=== PATIENT | male | born 1960 | race Caucasian/White ===

== ENCOUNTER → 2017-09-13 | Outpatient (CLI) | payer OTHER ==
--- NOTE | 2017-09-13 08:12 | DIAGNOSTIC IMAGING REPORT ---
ABDOMEN LIMITED (US) CLINICAL HISTORY: 56 years-old Male presenting with LIVER LESION. TECHNIQUE: Real-time grayscale and limited color Doppler ultrasound imaging of the abdomen limited to the right upper quadrant was performed. COMPARISON: 09/25/[address] from 2012. FINDINGS: Pancreas: Visualized portions of the pancreatic head and body normal. Liver: Moderately hyperechogenic parenchyma with partial obscuration of the right hemidiaphragm, likely indicating moderate steatosis. Subcentimeter anechoic lesion with posterior acoustic enhancement in the liver consistent with hepatic cyst or hamartoma. Main portal vein patent with normal directional flow. Biliary: No intrahepatic biliary ductal dilatation. Common bile duct measures up to 5 mm in diameter. Gallbladder: 2 mm isoechoic lesion adherent to the wall the gallbladder and a nondependent location, suggestive of small cholesterol polyp. No gallstones, gallbladder distention, gallbladder wall thickening, or pericholecystic fluid or inflammatory change. Right kidney: Normal in appearance. No hydronephrosis. Ascites: None. IMPRESSION: 1. Findings suggestive of moderate hepatic steatosis. 2. No sonographic evidence of suspicious liver lesion. Electronically signed by: Nathan Jason M.D. 09/13/2017 8:11 AM Dictated Date/Time: 09/13/2017 8:07 AM
== END | disposition home or self-care (01) ==
LOC: C.ULTR 07:42
PROVIDERS: ATTEND Family Medicine
DX: R93.2 Abnormal findings on diagnostic imaging of liver and biliary tract (principal)

== ENCOUNTER 2019-04-06 08:58 | Observation (INO) ==
[2019-04-06] MEDS ORDERED: GI COCKTAIL ED USE PO ONE (09:15)
[2019-04-06 09:42] LABS: Basophils # (auto) 0.02 K/uL (0-0.2); Basophils % (auto) 0.3 %; Eosinophils # (auto) 0.19 K/uL (0-0.5); Eosinophils % (auto) 3.3 %; Hematocrit (blood only) 43.1 % (42-52); Hemoglobin 14.9 g/dL (14.0-18.0); Immature Granulocytes # (auto) 0.02 K/uL (0.00-0.02); Immature Granulocytes % (auto) 0.3 %; Lymphocytes # (auto) 2.03 K/uL (1.2-3.4); Lymphocytes % (auto) 35.1 %; Mean Corpuscular Hgb Conc 34.6 g/dL (32-36); Mean Corpuscular Volume 85.9 fL (80-100); Mean Platelet Volume 9.9 fL (7.4-10.4); Monocytes % (auto) 12.1 %; Neutrophils # (auto) 2.82 K/uL (1.4-6.5); Neutrophils % (auto) 48.9 %; Platelet Count 168 K/uL (130-400); RDW Coefficient of Variation 12.6 % (11.5-14.5); RDW Standard Deviation 39.6 fL (36.4-46.3); Red Blood Count 5.02 M/uL (4.7-6.1); White Blood Count 5.78 K/uL (4.8-10.8)
--- NOTE | 2019-04-06 09:50 | Emergency Department Note ---
History of Present Illness General Chief complaint: Abdominal Pain Stated complaint: BURNING ON LEFT RIB CAGE Time Seen by Provider: 04/06/19 09:05 History of Present Illness Maximum Pain Intensity: 6 This is a 58-year-old male that presents to the emergency department via private vehicle plaints of "burning on left rib cage". The patient states that for the past 2 weeks he has been experiencing left upper quadrant abdominal burning sensation. He rates the discomfort as a 6/10. There is no identified alleviating or exacerbating factors. It does not change with food. Does not ch gilmar with position. He has never had this before. No abdominal surgery history. No chest pain, shortness of breath, fevers, chills, nausea, vomiting. He denies any urination difficulties or stool changes. He does note that his urine may have a strong smell but otherwise is normal. There has been no trauma or injury to the area. Home Medications Home Medications Medication Instructions Recorded Confirmed Type pyridoxine (vitamin B6) [Vitamin 0 mg PO QAM 04/06/19 04/06/19 History B-6] Allergies Allergy/AdvReac Type Severity Reaction Status Date / Time No Known Allergies Allergy Unverified 04/06/19 10:51 Past Med/Surg History Medical History No pertinent past medical history Surgical History History of rotator cuff surgery Social History Preferred Language: Occitan Communication Ability: Effective Shank Scourer Required: No Beliefs That Will Affect Care: None Current Living Situation: Spouse Other Information That Helps Us Care for You: No Feels Safe at Home: Yes Safety Concerns: Feels Safe At This Time Smoking Status: Never smoker Do You Dip or Chew Tobacco: No Second Hand Exposure: No Tobacco Cessation Education Requested by Patient: No Hx Alcohol Use: Yes Hx Substance Use: No Review of Systems A total of 10 systems reviewed and were otherwise negative Physical Exam Vital Signs Vital Signs - 24 hr 04/06/19 09:03 04/06/19 09:30 04/06/19 09:37 Temperature 36.9 C Temperature Source Oral Sepsis Recent Fever Within 48 Hours No Sepsis New/Unexplained Change in Mental Status No Sepsis Action Taken by Nursing No Action Required Pulse Rate 57 L 56 L Respiratory Rate 16 21 Blood Pressure 153/98 H 146/83 H Blood Pressure Mean 116 104 Pulse Oximetry 95 99 Oxygen Delivery Method Room Air Room Air 04/06/19 10:01 04/06/19 11:02 04/06/19 11:30 Temperature Temperature Source Sepsis Recent Fever Within 48 Hours Sepsis New/Unexplained Change in Mental Status Sepsis Action Taken by Nursing Pulse Rate 51 L 48 L 49 L Respiratory Rate 14 13 16 Blood Pressure 129/79 126/73 134/86 Blood Pressure Mean 95 90 102 Pulse Oximetry Oxygen Delivery Method VITAL SIGNS - Vital signs and nursing notes were reviewed. Stable, afebrile. GENERAL -58-year-old male appearing his stated age who is in no acute distress. Communicates well with provider and answers questions appropriately. SKIN - Without rashes. No meningeal, petechial or herpetic rash. The skin overlying left upper quadrant, and remainder of the thorax and abdomen are unremarkable. No change to the posterior aspect of his back. HEAD - NC/AT. EYES - PERRL with EOMI bilaterally. Sclera anicteric. Palpebral conjunctiva pink and moist with no injection noted. EARS - No deformities of external structures noted on gross examination bilaterally. Tympanic membranes pearly vanegas without retraction or bulging. No fluid or purulent material visualized behind the TM. Handle of malleus, umbo, c one of light, pars tensa/flaccid all easily visualized. NOSE - Midline and without cyanosis. No epistaxis or purulent drainage noted. Septum midline without deviation or septal hematoma noted. MOUTH/OROPHARYNX - Without perioral cyanosis. Buccal mucosa pink and moist and without leukoplakia. Tongue midline with equal elevation of palate bilaterally. No tonsillar hypertrophy, erythema, or exudates noted. Good dentition noted. NECK - Neck with FROM. Supple to palpation. No lymphadenopathy noted. No nuchal rigidity. LUNGS - Chest wall symmetric without accessory muscle use, intercostals retractions, or central cyanosis. Normal vesicular breath sounds CTA B/L. No wheezes, rales, or rhonchi appreciated. CARDIAC - RRR with S1/S2. No murmur, rubs, or gallops appreciated. ABDOMEN - Abdominal contour normal without pulsations or visible masses. BS normoactive all four quadrants. No tenderness, palpable masses, hepatosplenomegaly, or ascites noted. EXTREMITIES - No clubbing or peripheral cyanosis. No pretibial edema present. +5/5 strength noted in UE/LE bilaterally. NEUROLOGIC - Cranial nerves II through XII grossly intact. Sensory intact to light touch throughout. PSYCH - A&Ox3 and cooperates fully with examiner. Pt is very pleasant and interacts well with examiner. Course Administered Medications Discontinued Medications Al Hydrox/Mg Hydrox/Simethicone () 1 dose PO ONE ONE Stop: 04/06/19 09:16 Last Admin: 04/06/19 09:38 Dose: 1 dose Documented by: [id number] Aspirin (Aspirin Chew) 324 mg PO NOW STA Stop: 04/06/19 13:47 Last Admin: 04/06/19 14:30 Dose: 324 mg Documented by: [id number] Ioversol (Optiray 320 100ml) 93 ml IV ONCE PRN PRN Reason: Interaction Checking Stop: 04/10/19 10:37 Last Admin: 04/06/19 10:39 Dose: 93 ml Documented by: [id number] Medical Decision Making Laboratory Data Result diagrams: 04/06/19 09:34 04/06/19 09:34 Lab Results 04/06/19 04/06/19 04/06/19 Range/Units 09:34 09:34 09:50 WBC 5.78 (4.8-10.8) K/uL RBC 5.02 (4.7-6.1) M/uL Hgb 14.9 (14.0-18.0) g/dL Hct 43.1 (42-52) % MCV 85.9 (80-100) fL MCH 29.7 (25-34) pg MCHC 34.6 (32-36) g/dL RDW Std Deviation 39.6 (36.4-46.3) fL RDW Coeff of Safia 12.6 (11.5-14.5) % Plt Count 168 (130-400) K/uL MPV 9.9 (7.4-10.4) fL Immature Gran % (Auto) 0.3 % Neut % (Auto) 48.9 % Lymph % (Auto) 35.1 % [place] % (Auto) 12.1 % Eos % (Auto) 3.3 % Baso % (Auto) 0.3 % Immature Gran # (Auto) 0.02 (0.00-0.02) K/uL Neut # (Auto) 2.82 (1.4-6.5) K/uL Lymph # (Auto) 2.03 (1.2-3.4) K/uL [place] # (Auto) 0.70 H (0.11-0.59) K/uL Eos # (Auto) 0.19 (0-0.5) K/uL Baso # (Auto) 0.02 (0-0.2) K/uL Sodium 140 (136-145) mmol/L Potassium 4.8 (3.5-5.1) mmol/L Chloride 109 H (98-107) mmol/L Carbon Dioxide 28 (21-32) mmol/L Anion Gap 3.0 (3-11) BUN 17 (7-18) mg/dl Creatinine 1.12 (0.6-1.4) mg/dl Est Cr Clr Drug Dosing 108.4 ml/min Est GFR ( Amer) 84.7 Est GFR (Non-Af Amer) 73.0 BUN/Creatinine Ratio 15.1 (10-20) Glucose 100 H (70-99) mg/dl Calcium 9.2 (8.5-10.1) mg/dl Magnesium 2.2 (1.8-2.4) mg/dl Total Bilirubin 0.7 (0.2-1) mg/dl AST 30 (15-37) U/L ALT 47 (12-78) U/L Alkaline Phosphatase 76 (45-117) U/L Troponin I 0.042 (0-0.045) ng/ml Total Protein 7.6 (6.4-8.2) gm/dl Albumin 3.9 (3.4-5.0) gm/dl Globulin 3.7 (2.5-4.0) gm/dl Albumin/Globulin Ratio 1.1 (0.9-2) Lipase 193 (73-393) U/L Urine Color Yellow Urine Appearance Clear (Clear) Urine pH 5.0 (4.5-7.5) Ur Specific [place] 1.024 (1.000-1.030) Urine Protein Negative (Negative) Urine Glucose (UA) Negative (Negative) Urine Ketones Negative (Negative) Urine Blood Negative (Negative) Urine Nitrite Negative (Negative) Urine Bilirubin Negative (Negative) Urine Urobilinogen Negative (Negative) Ur Leukocyte Esterase Negative (Negative) 04/06/19 Range/Units 11:08 WBC (4.8-10.8) K/uL RBC (4.7-6.1) M/uL Hgb (14.0-18.0) g/dL Hct (42-52) % MCV (80-100) fL MCH (25-34) pg MCHC (32-36) g/dL RDW Std Deviation (36.4-46.3) fL RDW Coeff of Safia (11.5-14.5) % Plt Count (130-400) K/uL MPV (7.4-10.4) fL Immature Gran % (Auto) % Neut % (Auto) % Lymph % (Auto) % [place] % (Auto) % Eos % (Auto) % Baso % (Auto) % Immature Gran # (Auto) (0.00-0.02) K/uL Neut # (Auto) (1.4-6.5) K/uL Lymph # (Auto) (1.2-3.4) K/uL [place] # (Auto) (0.11-0.59) K/uL Eos # (Auto) (0-0.5) K/uL Baso # (Auto) (0-0.2) K/uL Sodium (136-145) mmol/L Potassium (3.5-5.1) mmol/L Chloride (98-107) mmol/L Carbon Dioxide (21-32) mmol/L Anion Gap (3-11) BUN (7-18) mg/dl Creatinine (0.6-1.4) mg/dl Est Cr Clr Drug Dosing ml/min Est GFR ( Amer) Est GFR (Non-Af Amer) BUN/Creatinine Ratio (10-20) Glucose (70-99) mg/dl Calcium (8.5-10.1) mg/dl Magnesium (1.8-2.4) mg/dl Total Bilirubin (0.2-1) mg/dl AST (15-37) U/L ALT (12-78) U/L Alkaline Phosphatase (45-117) U/L Troponin I 0.031 (0-0.045) ng/ml Total Protein (6.4-8.2) gm/dl Albumin (3.4-5.0) gm/dl Globulin (2.5-4.0) gm/dl Albumin/Globulin Ratio (0.9-2) Lipase (73-393) U/L Urine Color Urine Appearance (Clear) Urine pH (4.5-7.5) Ur Specific [place] (1.000-1.030) Urine Protein (Negative) Urine Glucose (UA) (Negative) Urine Ketones (Negative) Urine Blood (Negative) Urine Nitrite (Negative) Urine Bilirubin (Negative) Urine Urobilinogen (Negative) Ur Leukocyte Esterase (Negative) Imaging Data Radiologist's Impression: XR chest 1V portable HISTORY: 58 years-old Male LUQ abd pain acute left upper quadrant abdominal pain COMPARISON: CT abdomen pelvis 01/27/2013 TECHNIQUE: Portable AP view of the chest FINDINGS: Cardiac silhouette is mildly enlarged, unchanged. There is no pneumothorax, pleural effusion, focal airspace consolidation or overt pulmonary edema. Postoperative changes of the left humeral head. Bones of the chest appear gross ly intact. IMPRESSION: No acute process. The above report was generated using voice recognition software. It may contain grammatical, syntax or spelling errors. Electronically signed by: Parminder Gandhi M.D. 04/06/2019 9:[address] OF THE ABDOMEN AND PELVIS WITH CONTRAST CLINICAL HISTORY: Left upper quadrant abdominal pain. COMPARISON STUDY: CT of the abdomen and pelvis January 27, 2013. Abdominal ultrasound September 13, 2017. TECHNIQUE: Following IV administration of 93 mL of Optiray-320, axial images of the abdomen and pelvis were obtained from the lung bases to the proximal femurs. Images were reviewed in the axial, sagittal, and coronal planes. IV contrast was administered without complication. Automated exposure control was utilized for the study. A dose lowering technique was utilized adhering to the principles of ALARA. CT DOSE: 1112.91 mGycm FINDINGS: Lung bases are clear. No pneumatosis, free air or portal venous gas is present. Multiple small hypodense hepatic lesions are unchanged and CT of January 27, 2013. Therefore, these are benign. There is no biliary or pancreatic ductal dilatation. There is no peripancreatic or pericholecystic infiltration. There is no hydronephrosis. A 5 mm cyst within lower pole of the right kidney is noted. There is no lymphadenopathy. The caliber and wall thickness of small and large bowel are normal. The appendix is normal. There is no ascites. No suspicious osseous lesions are noted. Major vasculature is patent. IMPRESSION: No acute process within the abdomen or pelvis. Electronically signed by: Polo Espinoza M.D. 04/06/2019 11:12 AM [facility] Narrative Patient was seen and evaluated as above in room B6. Review was performed of nursing notes and vital signs. After obtaining a thorough history and physical examination the above work up was performed. He presents to us today with left upper quadrant abdominal burning sensation that he rates as a 6/10. I cannot make it worse on my examination by palpation to the region. Digit was made to obtain a chest x-ray given the location as well as a CT scan of the abdomen and pelvis with IV contrast. An EKG was also obtained. Sinus bradycardia noted with some T wave inversions. No previous for comparison. Chest x-ray was negative. CT of the abdomen and pelvis was also negative. He was given a GI cocktail with some minimal relief. The patient's troponin initially was 0.042 and then was slightly less than this. Although these are still within the normal range, they are borderline. I did discuss this with the attending physician, as well as the on-call injection molder, Dr. Arredondo. We reviewed the case. We discussed whether or not to observe the patient for cardiac rule out or have this performed in the outpatient setting. It was decided that given the patient's age, findings today and presentation that it would be reasonable. I did offer this to the patient and it was decided to observe him for cardiac rule out. Case discussed with the hospitalist. Please refer to further documentati on regarding his stay. Although this certainly could be gastritis or similar in nature, it is felt that the most life-threatening potential cause of the patient's pain would be cardiac and it is best to rule this out. In the evaluation and treatment of this patient, the following differential diag noses were considered: DC, ASC, Dysrhythmia, Angina, Mediastinitis, GERD, Esophagitis, PE, Pneumonia, Bronchitis, Costochondritis, Rib Fracture, Zoster. Impression & Plan Abdominal pain, acute, left upper quadrant Discharge Plan Visit Data *Final* Discharge Date/Time: 04/06/19 13:08 Chief Complaint: Abdominal Pain Stated Complaint: BURNING ON LEFT RIB CAGE ED Provider: Kennedy Weiner ED Midlevel Provider: Freddy Murray Discharge Problem: Abdominal pain, acute, left upper quadrant Patient Disposition: Admitted As Inpatient Condition: Good Discharge Instructions Interventions: ED Discharge Assessment Last Done: 04/06/19 13:08
--- NOTE | 2019-04-06 09:52 | XRay Report ---
XR chest 1V portable HISTORY: 58 years-old Male LUQ abd pain acute left upper quadrant abdominal pain COMPARISON: CT abdomen pelvis 01/27/2013 TECHNIQUE: Portable AP view of the chest FINDINGS: Cardiac silhouette is mildly enlarged, unchanged. There is no pneumothorax, pleural effusion, focal a irspace consolidation or overt pulmonary edema. Postoperative changes of the left humeral head. Bones of the chest appear grossly intact. IMPRESSION: No acute process. The above report was generated using voice recognition software. It may contain grammatical, syntax o r spelling errors. Electronically signed by: Parminder Gandhi M.D. 04/06/2019 9:50 AM
[2019-04-06 09:59] LABS: Albumin Level 3.9 gm/dl (3.4-5.0); BUN Creatinine Ratio 15.1 (10-20); Calcium 9.2 mg/dl (8.5-10.1); Creatinine Clr Calc Pharmacy 108.4 ml/min; Est GFR (African American) 84.7; Magnesium 2.2 mg/dl (1.8-2.4); Potassium 4.8 mmol/L (3.5-5.1)
[2019-04-06 10:03] LABS: Appearance Urine Clear (Clear); Bilirubin Urine Negative (Negative); Blood Urine Negative (Negative); Color Urine Yellow; Glucose Urine UA Negative (Negative); Ketones Urine Negative (Negative); Leukocyte Esterase Urine Negative (Negative); Nitrite Urine Negative (Negative); Protein Urine Negative (Negative); Specific Gravity Urine 1.024 (1.000-1.030); Urobilinogen Urine Negative (Negative)
[2019-04-06 10:05] LABS: Albumin Globulin Ratio 1.1 (0.9-2); Bilirubin,Total 0.7 mg/dl (0.2-1); Globulin 3.7 gm/dl (2.5-4.0); Total Protein 7.6 gm/dl (6.4-8.2); Troponin I 0.042 ng/ml (0-0.045)
[2019-04-06] MEDS ORDERED: IOVERSOL 100ml IV PRN (10:38)
--- NOTE | 2019-04-06 11:13 | CT Scan Report ---
CT OF THE ABDOMEN AND PELVIS WITH CONTRAST CLINICAL HISTORY: Left upper quadrant abdominal pain. COMPARISON STUDY: CT of the abdomen and pelvis January 27, 2013. Abdominal ultrasound September 13 7. TECHNIQUE: Following IV administration of 93 mL of Optiray-320, axial images of the abdomen and pelvi s were obtained from the lung bases to the proximal femurs. Images were reviewed in the axial, sagitt al, and coronal planes. IV contrast was administered without complication. Automated exposure contro l was utilized for the study. A dose lowering technique was utilized adhering to the principles of A MOUNA. CT DOSE: 1112.91 mGycm FINDINGS: Lung bases are clear. No pneumatosis, free air or portal venous gas is present. Multiple sm all hypodense hepatic lesions are unchanged and CT of January 27, 2013. Therefore, these are benign. Th ere is no biliary or pancreatic ductal dilatation. There is no peripancreatic or pericholecystic infi ltration. There is no hydronephrosis. A 5 mm cyst within lower pole of the right kidney is noted. The re is no lymphadenopathy. The caliber and wall thickness of small and large bowel are normal. The choco endix is normal. There is no ascites. No suspicious osseous lesions are noted. Major vasculature is p atent. IMPRESSION: No acute process within the abdomen or pelvis. Electronically signed by: Polo Espinoza M.D. 04/06/2019 11:12 AM
--- NOTE | 2019-04-06 12:56 | History & Physical Report ---
Date of Service April 06, 2019 Assessment & Plan (1) Chest pain: His chest pain is certainly atypical in nature improvement with GI cocktail thus far can do believe that this may be GI related., However with cardiology's recommendation the ER felt uncomfortable discharging home subsequently the patient be observed in our facility additional serial troponins be undertaken to be given aspirin have a morning lipid check and stress test scheduled for the a.m. Given his sinus bradycardia Lyme disease is added to his ER labs and a TSH be added to the morning labs Give is improved with a GI cocktail patient is put on Pepcid p.o. DVT prevention is early ambulation this patient is very fit History of Present Illness Primary Care Provider: Matthewcristophercedric Hinkle Patient is a 3-week history of vague burning sensation just inferior to his rib cage in his left upper abdomen. This is neither exacerbated nor remitted with exercise or recumbency it did have slight improvement with a GI cocktail in the ER. The patient has no known history of heart disease dyslipidemia and he has no family history of heart disease he is never been a smoker. Pain is not reproducible to exam Patient said EKG CT of the abdomen and pelvis and chest x-ray which were all unremarkable as well as laboratories which were all normal including troponin We are contacted cardiology on-call, Dr. Arredondo, who recommended observation and stress testing for this patient. Patient has baseline bradycardia but he says he is been bradycardic all his life patient has no known cardiac issues that he knows about has had no new health issues no new routines at home except he did have some caffeinated tea a few weeks back which usually avoids caffeine at all cost he said no change in bowel habits urinary habits In the ER troponins negative and EKG shows sinus bradycardia Allergies Allergy/AdvReac Type Severity Reaction Status Date / Time No Known Allergies Allergy Unverified 04/06/19 10:51 Home Medications Home Medications Medication Instructions Recorded Confirmed Type pyridoxine (vitamin B6) [Vitamin 0 mg PO QAM 04/06/19 04/06/19 History B-6] Past Med/Surg History Medical History No pertinent past medical history Surgical History History of rotator cuff surgery Social History Feels Safe at Home: Yes Smoking Status: Never smoker Review of Systems Review of Systems: ROS: well nourished well developed. No double vision blurry vision No problems with speech or swallowing No palpitations, chest pain or pressure No Wheezing or breathing issues Burning left upper quadrant abdominal pain, he has had no nausea vomiting diarrhea changes in appetite or weight changes in bowel habit No burning urine urine frequency or changes in color No focal joint pain or muscle pain No skin rashes or oral lesions No unusual bruising or bleeding No focused back pain or numbness or loss of strength No changes in memory or confusion Physical Exam Physical Exam: The patient appeared well nourished and normally developed. Vital signs as documented. Head exam is unremarkable. normocephalic, atraumatic Neck is without jugular venous distension, thyromegaly, or lymphademopathy Lungs are clear to auscultation and percussion. Cardiac exam reveals Rhythm is regular. First and second heart sounds normal. Abdominal exam reveals normal bowel sounds, no masses, no organomegaly pain is not reproducible to deep palpation there is no abnormalities on his skin of the abdomen either Extremities are nonedematous and both pedal pulses are present Neurologic exam is A&Ox3, no focal deficits, strength is equal bilateral Psychologically seems neither anxious or depressed Skin is warm Dry without bruises or lesions Results & Data Vital Signs (Past 12 Hours) Vital Signs Temp Pulse Resp BP Pulse Ox 04/06/19 11:02 48 L 13 126/73 04/06/19 10:01 51 L 14 129/79 04/06/19 09:37 99 04/06/19 09:30 56 L 21 146/83 H 04/06/19 09:03 36.9 C 57 L 16 153/98 H 95 EKG shows sinus bradycardia chest x-ray CT abdomen pelvis are negative
[2019-04-06] MEDS ORDERED: ALUMINUM/MAGNESIUM SUSP 30 ML UDC PO PRN (13:46)
[2019-04-06] MEDS ORDERED: ASPIRIN 81 MG CHEW PO STA (13:46)
[2019-04-06] MEDS ORDERED: ACETAMINOPHEN 325 MG TAB PO PRN (13:46)
[2019-04-06] MEDS ORDERED: ONDANSETRON INJ 2 MG/ML 2 ML VIAL IV PRN (13:46)
[2019-04-06 19:12] LABS: Lyme Ab IgG w/WB Rflx Negative (Negative); Lyme Ab IgM w/WB Rflx Negative (Negative)
[2019-04-06] MEDS: FAMOTIDINE 20 MG TAB PO SCH (21:27)
[2019-04-07 07:37] LABS: BUN Creatinine Ratio 13.9 (10-20); Calcium 9.2 mg/dl (8.5-10.1); Creatinine Clr Calc Pharmacy 107.1 ml/min; Est GFR (African American) 83.8; Est GFR (Non-African American) 72.3; Potassium 4.1 mmol/L (3.5-5.1)
[2019-04-07] MEDS: FAMOTIDINE 20 MG TAB PO SCH (07:38)
[2019-04-07 07:48] LABS: Troponin I 0.03 ng/ml (0-0.045)
[2019-04-07] MEDS ORDERED: ASPIRIN 81 MG ECTAB PO SCH (09:00)
[2019-04-07] MEDS ORDERED: PERFLUTREN LIPID MICROSPHERE (DEFINITY) IV ONE (09:22)
[2019-04-07 12:21] LABS: D Dimer 380 ug/L FEU (0-500)
--- NOTE | 2019-04-07 15:49 | Cardiology Consultation ---
Date of Consultation April 07, 2019 Assessment & Plan (1) Abdominal pain, acute, left upper quadrant: I do not believe his abdominal discomfort is cardiac, especially with a negative stress test. An atrial septal defect should not cause discomfort. (2) ASD (atrial septal defect): I believe he has an atrial septal defect, based on his enlarged right ventricle and what appears to be bubbles crossing the interatrial septum. I think it is safe to go home, this is not an acute finding and he does not have right ventricular failure. I think it should be followed however and I recommended follow-up in our office as an outpatient. History of Present Illness Reason for Consultation: Dilated right ventricle Attending Physician: Zulay Anderson MD History of Present Illness This is a very pleasant 58-year-old gentleman who has been in good health although he reports that he has had a slow heart rate. He presented with a 3- week history of abdominal discomfort, he came into the emergency room on April 06, 2019 with this. His troponin was technically negative and there is no particular trend, however his CT scan of the abdomen was negative so the cause of his discomfort was uncertain. He was therefore admitted to make sure this was not cardiac in etiology. He underwent a stress echo today where he exercised well and had no ischemic changes, however his right heart appeared quite dilated on baseline echocardiography. He has never had an echocardiogram before to my knowledge, he does not have any exercise related symptoms and is quite active. His activity is somewhat limited by knee discomfort but short of that he has had no limitations in his activity. Allergies Allergy/AdvReac Type Severity Reaction Status Date / Time No Known Allergies Allergy Unverified 04/06/19 10:51 Home Medications Home Medications Medication Instructions Recorded Confirmed Type pyridoxine (vitamin B6) [Vitamin 0 mg PO QAM 04/06/19 04/06/19 History B-6] aspirin [Ecotrin Low Strength] 81 mg PO QAM 1 Days #1 tab 04/07/19 Rx cholecalciferol (vitamin D3) 1,000 units PO DAILY #1 cap 04/07/19 Rx [Vitamin D3] famotidine 20 mg PO BID 1 Days #2 tab 04/07/19 Rx Patient History Medical History No pertinent past medical history Surgical History History of rotator cuff surgery Social History Preferred Language: Serbian Communication Ability: Effective 3Rd Grade Reading Teacher Required: No Beliefs That Will Affect Care: None Current Living Situation: Spouse Other Information That Helps Us Care for You: No Feels Safe at Home: Yes Safety Concerns: Feels Safe At This Time Smoking Status: Never smoker Do You Dip or Chew Tobacco: No Second Hand Exposure: No Tobacco Cessation Education Requested by Patient: No Hx Alcohol Use: Yes Hx Substance Use: No Review of Systems Review of Systems: All systems reviewed & are unremarkable except as noted in HPI & below Physical Exam Physical Exam: Constitutional: Alert, cooperative and in no distress. HEENT: Unremarkable Neck: No jugular venous distention, carotid pulses are normal and equal bilaterally without bruits. Pulmonary: Clear to auscultation bilaterally. Cardiac: Regular rhythm with no murmur, gallop or rub. Abdomen: Soft, nontender with normal bowel sounds. Extremities: No edema. Distal pulses intact. Neurologic: No focal findings. Gait is steady. Skin: No rash, ecchymoses or petechiae. Results & Data Vital Signs (Past 12 Hours) Vital Signs Temp Pulse Pulse Resp BP Pulse Ox 04/07/19 11:07 36.9 C 49 L 18 122/72 95 04/07/19 08:00 53 L 04/07/19 07:27 36.4 C L 41 L 18 122/74 94 Diagnostic Findings ECG: On arrival sinus bradycardia 58 bpm with one premature ventricular beat and some minor lateral ST-T abnormalities. This morning sinus bradycardia with a PVC, continued nonspecific ST-T abnormalities. Telemetry: Sinus bradycardia predominantly, PVCs. Stress echo: Good exercise, no ischemia on stress images. Bubble study: Probable ASD with some right to left transmission of bubbles
--- NOTE | 2019-04-07 17:51 | Discharge Summary ---
Date of Service April 07, 2019 Admission HPI Per Admitting Provider Patient is a 3-week history of vague burning sensation just inferior to his rib cage in his left upper abdomen. This is neither exacerbated nor remitted with exercise or recumbency it did have slight improvement with a GI cocktail in the ER. The patient has no known history of heart disease dyslipidemia and he has no family history of heart disease he is never been a smoker. Pain is not reproducible to exam Patient said EKG CT of the abdomen and pelvis and chest x-ray which were all unremarkable as well as laboratories which were all normal including troponin We are contacted cardiology on-call, Dr. Arredondo, who recommended observation and stress testing for this patient. Patient has baseline bradycardia but he says he is been bradycardic all his life patient has no known cardiac issues that he knows about has had no new health issues no new routines at home except he did have some caffeinated tea a few weeks back which usually avoids caffeine at all cost he said no change in bowel habits urinary habits In the ER troponins negative and EKG shows sinus bradycardia Admission Exam Per Admitting Provider The patient appeared well nourished and normally developed. Vital signs as documented. Head exam is unremarkable. normocephalic, atraumatic Neck is without jugular venous distension, thyromegaly, or lymphademopathy Lungs are clear to auscultation and percussion. Cardiac exam reveals Rhythm is regular. First and second heart sounds normal. Abdominal exam reveals normal bowel sounds, no masses, no organomegaly pain is not reproducible to deep palpation there is no abnormalities on his skin of the abdomen either Extremities are nonedematous and both pedal pulses are present Neurologic exam is A&Ox3, no focal deficits, strength is equal bilateral Psychologically seems neither anxious or depressed Skin is warm Dry without bruises or lesions Principal Diagnosis Chest Pain ASD Discharge Exam General: Resting comfortably in no apparent distress; A&OX3 HEENT: NC/AT; PERRLA with EOMI; [place] conjunctiva, MMM. No erythema of posterior pharynx Neck: Supple and nontender Cardiac: Bradycardia Lungs: CTA bilaterally; No rhonchi, wheezing, or rales Abdomen: Bowel normoactive X 4; Nontender to palpation Extremities: Warm. No edema present Neuro: No focal weakness Skin: No rash Discharge Data Allergies Allergy/AdvReac Type Severity Reaction Status Date / Time No Known Allergies Allergy Unverified 04/06/19 10:51 Consultations 04/06/19 12:47 ED Decision to Admit Stat 04/07/19 11:55 Consult Cardiology Routine Ordered Studies 04/06/19 09:15 CT abd pelvis IV con only Stat CXR Echocardiogram Hospital Course (1) Chest pain: Presented with acute epigastric/LUQ burning abd pain -- concern for atypical chest pain. Trop peaked at 0.04 then trended down. Had complete resolution of his pain for the first time in weeks with GI cocktail followed by Famotidine 20 mg BID. EKG showed no acute changes. Stress test was negative with exception of severely dilated RV Consulted cardiology, status post TTE with bubble study -- showed newly diagnosed ASD. Pt. was advised to take Famotidine twice daily scheduled with Tums prn. No indication for Aspirin therapy. F/u with PCP next week -- appt is scheduled. Will also f/u with cardiology. (2) ASD (atrial septal defect): Diagnosed via bubble study with TTE after finding of severely dilated RV seen on Stress ECHO Cardiology consulted, stable for discharge. Can follow up in outpatient clinic. (3) Bradycardia: HR remained low throughout admission, 40-50's. Sinus bradycardia with PACs and PVCs on monitor. No indication for further intervention. (4) DVT prophylaxis: Held for possible procedure. Pt. was stable for discharge to home on 04/07/19. Total Time Total Time Spent Total Time Spent (In Minutes): >30 minutes Total Time Includes: Examination of the Patient, Discharge Planning, Medication Reconciliation, Communication With Other Providers and Other Discharge Plan Discharge Items Patient Disposition: Home - Self-Care Reason For Visit: CHEST PAIN Discharge Diagnosis: Chest Pain Condition: Good Discharge Goals: Decrease discomfort, Improve disease control, Improve function, Increase independence and Prevent disease Activity: As commented below Exercise/Sports: Gradually increase as tolerated Non-emergency contact: Primary Care Provider Call non-emergency contact if: you have any medication questions, your symptoms worsen, your pain is not controlled, your pain is worsening, your pain is unusual for you, your pain is concerning for you and you have a fever Follow-up/Referrals: Catherine Hinkle [Primary Care Provider] - Diet: Regular Addtl Provider Instructions: 1. Chest Pain * Stress test was negative during this admission. Pain may be related to GI course -- likely acid reflux. * Please take Famotidine 20 mg twice daily -- this can be purchased over the counter. * You will need to follow up with your primary care doctor in 7-10 days to discuss this hospital admission. * Please call your primary care doctor or go to the ER if you develop recurrent chest/abdominal pain at rest or with exertion, shortness of breath, nausea/vomiting. 2. Newly Diagnosed Atrial Septal Defect * Please follow up with cardiology in 2-3 weeks for evaluation. Prescriptions: New cholecalciferol (vitamin D3) [Vitamin D3] 1,000 unit capsule 1,000 units PO DAILY Qty: 1 RF: 0 Discontinued pyridoxine (vitamin B6) [Vitamin B-6] 250 mg Tablet PO QAM RF: 0 Stand-Alone Forms: Call Back Authorization, [facility] Discharge Orders: Discharge Order (Routine); Ordered 04/07/19 Ordered By: Padmini Jackson Admission Data Admit Date/Time: 04/06/19 12:41 Attending Provider: Zulay Anderson Admit Provider: David Choi Primary Care Provider: Catherine Hinkle Other Providers: David Choi ; Douglas Arredondo Service: Telemetry Medical Other Interventions: Discharge Summary Assessment (RN) Last Done: 04/07/19 16:18 Pending Studies at Discharge: No DC Date/Time DO NOT enter until pt leaves facility: 04/07/19 17:27 Supervising Physician Co-Signing Physician Notes PA Supervision Note: I personally saw and examined the patient. I verified all pearson points and agree with GÉNESIS Jackson with the following exceptions and/or additions: Pt completely pain free since being here after starting Pepcid. Pain had been constant for weeks. Severe RV dilation seen incidentally on Stress ECHO and likely secondary to ASD then seen on Bubble study. F/u as outpt with Cardio for this Continue on Pepcid x 2 weeks and then stop. If symptoms return, discuss with PCP about need for EGD Vitals reviewed NAD RRR no mgr CTAB no wcr Abd +BS soft NT ND Ext no edema or calf tenderness Stable for dc to home
== END 2019-04-07 17:27 | disposition home or self-care (01) ==
LOC: 2N 08:58 → ED 08:58 → SUATTDRO 12:41 → 2N 13:08
DX: R10.12 Left upper quadrant pain; Q21.1 Atrial septal defect; R00.1 Bradycardia, unspecified